=== PATIENT | male | born 1995 | race Caucasian/White ===

== ENCOUNTER 2023-05-20 17:48 | Emergency (ER) | payer SELFPAY ==
[2023-05-20 19:26] LABS: BASOPHILS ABSOLUTE AUTO 0.04 K/mm3 (0.01-0.08); BASOPHILS PERCENT AUTO 0.3 % (0.1-1.2); EOSINOPHILS ABSOLUTE AUTO 0.43 K/mm3 (0.04-0.54); EOSINOPHILS PERCENT AUTO 3.2 (0.8-7.0); HEMATOCRIT 50.4 % (40.1-51.0); HEMOGLOBIN 16.9 gm/dl (13.7-17.5); IMMATURE GRAN ABSOLUTE AUTO 0.02 K/mm3 (0.00-0.10); IMMATURE GRAN PERCENT AUTO 0.1 % (<=1.0); LYMPHOCYTES ABSOLUTE AUTO 3.47 K/mm3 (1.32-3.57); LYMPHOCYTES PERCENT AUTO 25.5 % (21.8-53.1); MEAN CORPUSCULAR HEMOGLOBIN 29.5 pg (25.7-32.2); MEAN CORPUSCULAR HGB CONC 33.5 g/dl (32.2-35.5); MEAN CORPUSCULAR VOLUME 88.1 fl (79.0-92.2); MEAN PLATELET VOLUME 10.7 fl (9.4-12.3); MONOCYTES ABSOLUTE AUTO 1.21 K/mm3 (0.30-0.82); MONOCYTES PERCENT AUTO 8.9 % (5.3-12.2); NEUTROPHILS ABSOLUTE AUTO 8.44 K/mm3 (1.78-5.38); PLATELET COUNT,PLT 251 K/mm3 (163-337); RED BLOOD CELL COUNT 5.72 M/mm3 (4.63-6.08); WHITE BLOOD CELL COUNT,WBC 13.61 K/mm3 (4.23-9.07)
[2023-05-20 19:49] LABS: A/G RATIO 1.1 (1-2); ALBUMIN 3.8 g/dl (3.4-5.0); ANION GAP 11.7 (5-15); BUN/CREATININE RATIO 16.3 (14-18); CALCIUM 8.8 mg/dL (8.5-10.1); CREATININE 0.8 mg/dL (0.7-1.3); EST CRCL DRUG DOSING (CG) 145.75 mL/min; POTASSIUM,K 3.7 mEq/L (3.5-5.1); PROTEIN TOTAL,TP 7.4 g/dl (6.4-8.2); TSH 0.409 uIU/mL (0.358-3.74)
[2023-05-20 21:11] LABS: BARBITURATE SCREEN,URINE NEGATIVE (CUTOFF=200); BENZODIAZEPINES SCREEN,URINE NEGATIVE (CUTOFF=150); BUPRENORPHINE SCREEN,URINE NEGATIVE (CUTOFF=10); METHADONE SCREEN, URINE NEGATIVE (CUT0FF=200); METHAMPHETAMINES SCREEN, URINE NEGATIVE (CUTOFF=500); OXYCODONE SCREEN,URINE NEGATIVE (CUT0FF=100); PROPOXYPHENE SCREEN,URINE NEGATIVE (CUTOFF=300); THC SCREEN,URINE 20 NG/ML PRESUMPTIVE POSITIVE (CUTOFF=50)
[2023-05-20 21:13] LABS: AMPHETAMINES SCREEN, URINE NEGATIVE (CUTOFF=500)
== END 2023-05-20 22:28 | disposition home or self-care (01) ==
LOC: JD.ED 17:48
DX: F32.A Depression, unspecified (principal); F17.210 Nicotine dependence, cigarettes, uncomplicated
CPT/HCPCS: 36415; 80053; 80143; 80179; 80306; 80307; 84443; 85025; 93005; 99285

== ENCOUNTER 2024-02-29 15:08 | Emergency (ER) | payer OTHER ==
[2024-02-29] MEDS: Ketorolac 60 MG/2 ML SDV IM ONE (16:16)
== END 2024-02-29 16:20 | disposition home or self-care (01) ==
LOC: JD.ED 15:08
DX: M71.22 Synovial cyst of popliteal space [Baker], left knee (principal)
CPT/HCPCS: 96372; 99283; J1885